=== PATIENT | female | born 1955 | race Caucasian/White ===

== ENCOUNTER 2018-01-03 10:51 | Outpatient (CLI) | payer OTHER ==
--- NOTE | 2018-01-05 08:27 | Ultrasound Report ---
EXAM: RIGHT LOWER EXTREMITY ULTRASOUND - LIMITED EXAM DATE: 01/03/2018 12:27 PM. CLINICAL HISTORY: Right extremity skin mass. Patient could only feel mass when standing upright. Nonp ainful. COMPARISON: None. TECHNIQUE: Real-time scanning was performed with static images obtained. FINDINGS: Exam performed with the patient standing. The palpable area of abnormality in the back of the right c mcfp noted by the patient corresponds to a vein as per enamel sprayer assessment. No subcutaneous or intr amuscular mass is identified sonographically on the submitted images. No fluid collections. IMPRESSION: 1. Palpable area noted by the patient corresponds to a right calf vein. No subcutaneous change or int ramuscular masses are identified. No fluid collections. [facility] Referring Provider Line: [phone] SITE ID: [id number]
== END 2018-01-03 10:52 | disposition home or self-care (01) ==
LOC: DI 10:51
PROVIDERS: ATTEND Nurse Practitioner Family
DX: R22.41 Localized swelling, mass and lump, right lower limb (principal)
CPT/HCPCS: 76882

== ENCOUNTER 2018-02-23 10:39 | Outpatient (CLI) | payer OTHER ==
--- NOTE | 2018-02-23 13:28 | XRAY Report ---
[facility] CERVICAL SPINE: 02/23/2018 CLINICAL INDICATION: Neck pain. FINDINGS: AP, lateral, odontoid views of the cervical spine demonstrate mild degenerative disk and facet disease. There is no evidence of fracture or subluxation. The prevertebral soft tissues are unremarkable. IMPRESSION: MILD DEGENERATIVE CHANGES. TD: 02/23/2018 13:27
== END 2018-02-23 10:40 | disposition home or self-care (01) ==
LOC: DI.S 10:39
PROVIDERS: ATTEND Nurse Practitioner Family
DX: M50.30 Other cervical disc degeneration, unspecified cervical region (principal); M47.892 Other spondylosis, cervical region
CPT/HCPCS: 72040

== ENCOUNTER 2021-02-09 16:01 | Emergency (ER) | payer MEDICARE, OTHER ==
[2021-02-09] MEDS ORDERED: SODIUM CHLORIDE 0.9% 1,000 ML IV STA (16:33)
[2021-02-09] MEDS ORDERED: ONDANSETRON 4 MG/2 ML VIAL IVP STA (16:33)
[2021-02-09] MEDS ORDERED: MORPHINE 10 MG/ML VIAL IVP STA (16:33)
--- NOTE | 2021-02-09 16:37 | ED Physician Documentation ---
History of Present Illness - Stated complaint Stated Complaint: LOW RT ABD PX - Chief complaint Chief Complaint: Abd Pain - History obtained from History obtained from: Patient - History of Present Illness Timing: Today, How many hours ago (2) Pain level max: 8 Pain level now: 8 - Additonal information Additional information: RLQ abd pain x 2 hours. Has had nausea and vomiting x 6. No fevers. No diarrhea. No constipation. No history of abdominal surgeries. Has had chills. Review of Systems Ten Systems: 10 systems reviewed and negative Constitutional: denies: Fever Nose: denies: Rhinorrhea / runny nose, Congestion GI: reports: Nausea, Vomiting (x6). denies: Diarrhea, Hematemesis, Bloody / black stool : denies: Dysuria Skin: denies: Rash Musculoskeletal: denies: Neck pain, Back pain Neurologic: denies: Headache PD PAST MEDICAL HISTORY - Present Medications Home Medications: Ambulatory Orders Medication Instructions Recorded Confirmed Amox/Clav 875/125 [Augmentin] 1 tab PO Q12H #20 tablet 02/09/21 HYDROcod/ACETAM 5/325 [Elton 5/325] 1 - 2 ea PO Q6H PRN #14 tablet 02/09/21 Ondansetron Odt [Zofran] 4 mg TL Q6H PRN #10 tablet 02/09/21 - Allergies Allergies/Adverse Reactions: Allergies Allergy/AdvReac Type Severity Reaction Status Date / Time No Known Drug Allergies Allergy Verified 02/09/21 16:10 PD ED PE NORMAL - Vitals Vital signs reviewed: Yes - General General: Alert and oriented X 3, No acute distress, Well developed/nourished - HEENT HEENT: PERRL, Moist mucous membranes - Neck Neck: Supple, no meningeal sign - Cardiac Cardiac: RRR, Strong equal pulses - Respiratory Respiratory: Clear bilaterally - Abdomen Abdomen: Soft, Non distended, Other (Tender to palpation right lower quadrant at McBurney's point. Positive rebound and guarding) - Back Back: No CVA TTP, No spinal TTP - Derm Derm: Warm and dry - Extremities Extremities: No edema - Neuro Neuro: Alert and oriented X 3 - Psych Psych: Normal mood, Normal affect Results - Vitals Vitals: Vital Signs - 24 hr 02/09/21 02/09/21 02/09/21 16:03 18:09 18:37 Temperature 36.9 C 36.8 C Heart Rate 56 L 62 62 Respiratory 16 16 18 Rate Blood Pressure 114/71 114/70 104/75 O2 Saturation 98 100 100 Oxygen O2 Source Room air - Labs Labs: Laboratory Tests 02/09/21 02/09/21 02/09/21 16:28 16:28 18:00 WBC 7.1 RBC 4.33 Hgb 13.1 Hct 38.6 MCV 89.1 MCH 30.3 MCHC 33.9 RDW 12.1 Plt Count 150 MPV 10.3 Neut # (Auto) 5.7 Lymph # (Auto) 1.0 L Terry # (Auto) 0.3 Eos # (Auto) 0.0 Baso # (Auto) 0.1 Absolute Nucleated RBC 0.00 Nucleated RBC % 0.0 Sodium 137 Potassium 4.3 Chloride 102 Carbon Dioxide 27 Anion Gap 8.0 BUN 15 Creatinine 0.6 Estimated GFR (MDRD) 100 Glucose 108 H Calcium 9.2 Total Bilirubin 1.5 H AST 25 ALT 21 Alkaline Phosphatase 59 Total Protein 7.0 Albumin 4.8 Globulin 2.2 Albumin/Globulin Ratio 2.2 Lipase 25 Urine Color YELLOW Urine Clarity CLEAR Urine pH 6.0 Ur Specific [place] 1.010 Urine Protein NEGATIVE Urine Glucose (UA) NEGATIVE Urine Ketones 15 H Urine Occult Blood NEGATIVE Urine Nitrite NEGATIVE Urine Bilirubin NEGATIVE Urine Urobilinogen 0.2 (NORMAL) Ur Leukocyte Esterase NEGATIVE Ur Microscopic Review NOT INDICATED Urine Culture Comments NOT INDICATED - Rads (name of study) CT abd/pelvis Radiology: Prelim report reviewed, EMP read contemporaneously, See rad report PD MEDICAL DECISION MAKING - ED course Complexity details: reviewed results, re-evaluated patient, considered differential, d/w patient ED course: 65-year-old female with abdominal pain, vomiting, diarrhea. Appears to have infectious versus inflammatory enterocolitis. No history of inflammatory bowel disease. Has not had similar symptoms previously. Likely that this is infectious. Will place on antibiotics. Patient counseled this could be viral as well. Her pain is well controlled. She is tolerating p.o. without difficulty. We will continue supportive care as well as the antibiotics and have her follow-up with her doctor for further care. Patient counseled regarding signs and symptoms for which I believe and urgent re-evaluation would be necessary. Patient with good understanding of and agreement to plan and is comfortable going home at this time This document was made in part using voice recognition software. While efforts are made to proofread this document, sound alike and grammatical errors may occur. IMPRESSION: 1. Areas of bowel wall thickening and bilateral hyperenhancement are seen in the distal ileum as well as in the descending and sigmoid colon, which is suspicious for a nonspecific infectious or inflammatory enterocolitis such as Crohn disease. No signs of bowel obstruction. 2. Normal appendix. No ascites or pneumoperitoneum. Departure - Departure Disposition: 01 Home, Self Care Clinical Impression: Enterocolitis Condition: Good Instructions: ED Gastroenteritis Bacterial Follow-Up: your,doctor in 1 week [Other] Prescriptions: Amox/Clav 875/125 [Augmentin] 1 tab PO Q12H #20 tablet HYDROcod/ACETAM 5/325 [Elton 5/325] 1 - 2 ea PO Q6H PRN #14 tablet PRN Reason: Pain Ondansetron Odt [Zofran] 4 mg TL Q6H PRN #10 tablet PRN Reason: Nausea / Vomiting Comments: Take all antibiotics until gone. Return if you worsen. It is unclear whether this is likely viral or bacterial. It is less likely to be inflammatory as you do not have a history of an inflammatory bowel disease. Follow-up with your doctor in 3 to 5 days for recheck. . Do not drink alcohol or drive while on narcotic pain medicine. Note that many narcotic pain relievers also contain tylenol/acetaminophen. Please ensure that your total dose of acetaminophen from all sources does not exceed 3 grams (3000mg) per day. You may constipated on this medication, take a stool softener such as "Colace" twice a day while you are on it. Also recommend a xfua-vvy-qfwuxdw laxative such as senna or MiraLAX any day that you do not have a bowel movement. If you received narcotic pain medication in the emergency department, do not drive or operate machinery for the next 24 hours. Discharge Date/Time: 02/09/21 18:43
[2021-02-09] MEDS ORDERED: IOPAMIDOL-300 100 ML VIAL ONE (16:39)
[2021-02-09 16:47] LABS: ALBUMIN 4.8 g/dL (3.2-5.5); ALBUMIN/GLOBULIN RATIO 2.2 (1.0-2.2); BILIRUBIN,TOTAL 1.5 mg/dL (0.2-1.0); CALCIUM 9.2 mg/dL (8.5-10.3); CREATININE 0.6 mg/dL (0.4-1.0); POTASSIUM 4.3 mmol/L (3.5-5.0)
[2021-02-09 16:49] LABS: BASOPHILS # (AUTO) 0.1 10^3/uL (0.0-0.1); BASOPHILS % (AUTO) 0.7 %; EOSINOPHILS % (AUTO) 0.4 %; HCT - HEMATOCRIT 38.6 % (37.0-47.0); HGB - HEMOGLOBIN 13.1 g/dL (12.0-16.0); LYMPHOCYTES % (AUTO) 14.1 %; MEAN CORPUSCULAR HEMOGLOBIN 30.3 pg (27.0-31.0); MEAN CORPUSCULAR HGB CONC 33.9 g/dL (32.0-36.0); MEAN CORPUSCULAR VOLUME 89.1 fL (81.0-99.0); MEAN PLATELET VOLUME 10.3 fL (7.9-10.8); MONOCYTES # (AUTO) 0.3 10^3/uL (0.0-1.0); MONOCYTES % (AUTO) 4.5 %; NEUTROPHILS # (AUTO) 5.7 10^3/uL (1.5-6.6); NEUTROPHILS % (AUTO) 80.2 %; PLT - PLATELET COUNT 150 10^3/uL (130-450); RED BLOOD COUNT 4.33 10^6/uL (4.20-5.40); RED CELL DISTRIBUTION WIDTH 12.1 % (12.0-15.0); WHITE BLOOD COUNT 7.1 x10^3/uL (4.8-10.8)
--- OUTSIDE RECORDS SUMMARY | 2021-02-09 16:51 | EXTERNAL MEDICAL SUMMARY RPT | Continuity of Care Document ---
:1955 Demographics Phone Unavailable Preferred Language Unknown Marital Status Unknown Voodoo Affiliation Unknown Race Unknown Ethnic Group Unknown Author Organization [facility] Address [address] [phone] Phone Social History date description facility [id number]
[2021-02-09] MEDS ORDERED: IOPAMIDOL-300 100 ML VIAL IVP ONE (17:19)
--- NOTE | 2021-02-09 17:49 | CT Report ---
PROCEDURE: Abdomen/Pelvis W INDICATIONS: RLQ Abdominal pain, appendicitis suspected CONTRAST: IV CONTRAST: Isovue 300 ml: 100 PO CONTRAST: *NO PO CONTRAST TECHNIQUE: After the administration of intravenous contrast, 5 mm thick sections acquired from the diaphragms to the symphysis. 5 mm thick coronal and sagittal reformats were acquired. For radiation dose reducti on, the following was used: automated exposure control, adjustment of mA and/or kV according to lizette ent size. COMPARISON: None. FINDINGS: Image quality: Excellent. ABDOMEN: Lung bases: Mild dependent atelectasis is seen in the lung bases bilaterally. Heart size is normal. Solid organs: Liver and spleen are normal in size and enhancement. Gallbladder appears normal. Elvis iary system is non dilated. Pancreas enhances normally. No adrenal nodules. Kidneys demonstrate no rmal size and enhancement, without hydronephrosis. Peritoneum and bowel: The appendix is normal in size without periappendiceal fat stranding. Multiple short segments of bowel wall hyperenhancement are seen within the distal ileum. A few fluid-filled lo ops of bowel are seen in the central abdomen, but there are no signs of significant bowel obstruction . Mild bowel wall thickening is also seen involving the distal descending and sigmoid colon with spar ing of the rectum. There is no ascites or pneumoperitoneum. Nodes and vessels: No retroperitoneal or mesenteric adenopathy by size criteria. Aorta and inferior vena cava are normal in size. Miscellaneous: No ventral hernias. PELVIS: Genitourinary: Bladder wall thickness is normal. The uterus is normal in size. Miscellaneous: No inguinal hernias or adenopathy. Bones: No suspicious bony lesions. No vertebral body compression fractures. Multilevel degenerativ e changes are seen in the spine. Sacroiliac joints are intact. IMPRESSION: 1. Areas of bowel wall thickening and bilateral hyperenhancement are seen in the distal ileum as wel l as in the descending and sigmoid colon, which is suspicious for a nonspecific infectious or inflamm atory enterocolitis such as Crohn disease. No signs of bowel obstruction. 2. Normal appendix. No ascites or pneumoperitoneum. Reviewed by: Forrest Knott MD on 02/09/2021 5:48 PM PDT Approved by: Forrest Knott MD on 02/09/2021 5:48 PM PDT Station ID: [id number]
[2021-02-09 18:10] LABS: BILIRUBIN,URINE NEGATIVE (NEGATIVE); GLUCOSE, URINE (UA) NEGATIVE (NEGATIVE); KETONES,URINE (UA) 15 mg/dL (NEGATIVE); LEUKOCYTE ESTERASE, URINE NEGATIVE (NEGATIVE); NITRITE,URINE NEGATIVE (NEGATIVE); OCCULT BLOOD,URINE NEGATIVE (NEGATIVE); PROTEIN,URINE NEGATIVE (NEGATIVE); UROBILINOGEN,URINE 0.2 (NORMAL) E.U./dL (NORMAL)
[2021-02-09 18:21] LABS: CLARITY,URINE CLEAR (CLEAR)
[2021-02-09] MEDS ORDERED: AMOX/CLAV 875 MG/125 MG TABLET PO STA (18:23)
[2021-02-09 18:37] VITALS: BP 104/75
== END 2021-02-09 18:43 | disposition home or self-care (01) ==
LOC: ED 16:01
DX: K52.9 Noninfective gastroenteritis and colitis, unspecified (principal)
CPT/HCPCS: 36415; 74177; 80053; 81003; 83690; 85025; 96361; 96374; 96375; 99284; A9270; Q9967; 81001; 87086

== ENCOUNTER 2023-11-25 12:50 | Outpatient (CLI) | payer MEDICARE | END 2023-11-25 12:51 | disposition EMS.NT | LOC: EMS 12:50 | DX: U07.1 COVID-19 (principal); I48.91 Unspecified atrial fibrillation ==